=== PATIENT | female | born 1965 | race Caucasian/White ===

== ENCOUNTER 2025-01-21 02:21 | Day surgery (SDC) | payer OTHER ==
[2025-01-21] VITALS (221 sets, daily range): BP systolic 96–169; BP diastolic 31–108
[~2025-01-21 02:21] MED LIST: SODIUM CHLORIDE 0.9% 1,000 ML IV PRN
[2025-01-21] MEDS ORDERED: DEXMEDETOMIDINE HCL IN SODIUM 100 ML IV PRN (07:10)
[2025-01-21] MEDS ORDERED: SCOPOLAMINE 1.5 MG DIS TD PRN (07:30)
[2025-01-21] MEDS ORDERED: LACTATED RINGER'S 1,000 ML IV PRN ×2 (07:30→09:20)
[2025-01-21] MEDS ORDERED: CYANOCOBALAMIN 500 MCG/TAB ( B12) PO PRN (07:30)
[2025-01-21] MEDS ORDERED: cloNIDine HCL 0.1 MG/TAB PO PRN (07:30)
[2025-01-21] MEDS ORDERED: PANTOPRAZOLE SODIUM Sesquihydr 40 MG/TAB PO PRN (07:30)
[2025-01-21] MEDS ORDERED: ALBUTEROL SULFATE 2.5 MG VIAL IN PRN (07:30)
[2025-01-21] MEDS ORDERED: diazePAM 5 MG/TAB PO PRN ×2 (07:30→08:30)
[2025-01-21] MEDS ORDERED: FAMOTIDINE 20 MG/TAB PO PRN (07:30)
[2025-01-21] MEDS ORDERED: ASCORBIC ACID 4,000 MG in SODIUM CHLORIDE 0.9% 1,000 ML IV SCH (08:00)
[2025-01-21 08:41] LABS: EOS% 3.6 % (0-8); HEMATOCRIT 38.4 % (37.0-47.0); HEMOGLOBIN 12.3 g/dl (12.0-16.0); LYMPH% 37.3 % (15-41); MEAN CELL VOLUME 93.2 fL CALC (80.0-100.0); MEAN CORPUSCULAR HGB 29.9 pG CALC (26.0-32.0); NEUT# 2.07 thou/uL (2.00-7.15); NEUT% 50.1 % (42-76); RED BLOOD COUNT 4.12 mill/uL (4.20-5.60); RED CELL DISTRI WIDTH 12.3 % (11.5-15.5)
[2025-01-21] MEDS ORDERED: XANAX0.5 MG PO (08:51)
[2025-01-21] MEDS ORDERED: CITALOPRAM20 MG PO (08:52)
[2025-01-21 08:53] LABS: ALBUMIN 4.1 g/dL (3.2-5.0); BILIRUBIN, TOTAL 0.6 mg/dL (0.02-1.3); CREATININE 0.6 mg/dL (0.5-1.0); TOTAL PROTEIN 6.9 g/dL (6.3-8.2)
[2025-01-21] MEDS ORDERED: diazePAM 5 MG/TAB VT PRN (09:20)
[2025-01-21] MEDS ORDERED: POTASSIUM CHLORIDE 20 MEQ/100 ML BAG IV PRN (09:20)
[2025-01-21] MEDS ORDERED: LIDOCAINE HCL 1% (10MG/ML) 100 MG/10 ML MDV VT PRN ×2 (09:20)
[2025-01-21] MEDS ORDERED: PROPOFOL 10 MG/ML 100ML VIAL IV PRN (09:20)
[2025-01-21] MEDS ORDERED: PROPOFOL 100 ML IV PRN (09:20)
[2025-01-21] MEDS ORDERED: DiphenhydrAMINE HCL 50 MG/ML SDV IV PRN (09:20)
[2025-01-21] MEDS ORDERED: cloNIDine HCL 0.1 MG/TAB VT PRN (09:20)
[2025-01-21] MEDS ORDERED: THIAMINE HCL 100 MG/ML 2ML VIAL IV PRN (09:20)
[2025-01-21] MEDS ORDERED: MIDAZOLAM HCL 2 MG/2 ML VIAL IV PRN ×3 (09:20→17:00)
[2025-01-21] MEDS ORDERED: ROCURONIUM BROMIDE 10 MG/ML 5 ML VIAL IV PRN (09:20)
[2025-01-21] MEDS ORDERED: MAGNESIUM SULFATE HEPTAHYDRATE 100 ML IV PRN (09:20)
[2025-01-21] MEDS ORDERED: SODIUM CHLORIDE 0.9% 1,000 ML IV PRN ×2 (09:20→19:00)
[2025-01-21] MEDS ORDERED: SUCCINYLCHOLINE CHLORIDE 20 MG/ML 10ML VIAL IV PRN (09:20)
[2025-01-21] MEDS ORDERED: OCTREOTIDE ACETATE 100 MCG/VIAL SDV SC PRN (09:20)
[2025-01-21] MEDS ORDERED: cloNIDine HYDROCHLORIDE 100 MCG/ML 10 ML INJ IV PRN (09:20)
[2025-01-21] MEDS ORDERED: ONDANSETRON HCl 4 MG/2 ML SDV IV PRN ×3 (09:20→19:00)
[2025-01-21] MEDS ORDERED: LIDOCAINE HCL 1% (10MG/ML) 100 MG/10 ML MDV IV PRN ×2 (09:20→12:55)
[2025-01-21] MEDS ORDERED: STERILE WATER FOR IRRIGATION 1,000 ML BTL IR PRN (09:20)
[2025-01-21] MEDS ORDERED: NALTREXONE HCL 50 MG/TAB VT PRN (09:20)
[2025-01-21] MEDS ORDERED: KETOROLAC TROMETHAMINE 30 MG/ML SDV IV PRN ×2 (12:55→19:00)
[2025-01-21] MEDS ORDERED: ACETAMINOPHEN 100 ML IV PRN (12:55)
[2025-01-21] MEDS ORDERED: CLONIDINE0.1 MG PO (13:34)
[2025-01-21] MEDS ORDERED: KLONOPIN2 MG PO (13:34)
[2025-01-21] MEDS ORDERED: NALTREXONE50 MG PO (13:34)
[2025-01-21] MEDS ORDERED: hydrALAZINE HCL 20 MG/ML VIAL(1 ML) IV SCH (13:55)
[2025-01-21] MEDS ORDERED: METOPROLOL TARTRATE 5 MG/5 ML VIAL IV ONE (18:24)
[2025-01-21] MEDS ORDERED: METOPROLOL TARTRATE 5 MG/5 ML VIAL IV SCH (18:30)
[2025-01-21] MEDS ORDERED: PROMETHAZINE HCL 25 MG in SODIUM CHLORIDE 0.9% 50 ML IV PRN (19:00)
[2025-01-21] MEDS ORDERED: HALOPERIDOL LACTATE 5 MG/ML SDV IV PRN (19:00)
[2025-01-21] MEDS ORDERED: ACETAMINOPHEN 1,000 MG/100 ML VIAL IV PRN (19:00)
[2025-01-21] MEDS ORDERED: PROMETHAZINE HCL 12.5 MG in SODIUM CHLORIDE 0.9% 50 ML IV PRN (19:00)
[2025-01-21] MEDS ORDERED: ACETAMINOPHEN 500 MG TAB PO PRN (19:00)
[2025-01-21] MEDS ORDERED: PATIENT' OWN MED CONTROLLED 1 EA DOSE IV PRN (21:00)
[2025-01-21] MEDS ORDERED: clonazePAM 1 MG/TAB PO PRN (23:00)
[2025-01-21] MEDS ORDERED: cloNIDine HCL 0.1 MG/TAB PO SCH (23:00)
[2025-01-22 03:32] VITALS: BP 140/60
[2025-01-22] MEDS ORDERED: cloNIDine HCL 0.1 MG/TAB PO PRN ×2 (04:00→16:30)
[2025-01-22] MEDS ORDERED: clonazePAM 1 MG/TAB PO PRN ×4 (04:00→23:00)
[2025-01-22] MEDS ORDERED: NALTREXONE HCL 50 MG/TAB PO SCH (04:00)
[2025-01-22 06:01] LABS: CREATININE 0.7 mg/dL (0.5-1.0); MAGNESIUM 2.2 mg/dL (1.6-2.3); POTASSIUM 4.1 mmol/l (3.5-5.1); TOTAL PROTEIN 6.6 g/dL (6.3-8.2)
[2025-01-22 06:03] LABS: BASO% 0.2 % (0-3); HEMATOCRIT 36.8 % (37.0-47.0); HEMOGLOBIN 12.3 g/dl (12.0-16.0); IMMATURE GRANULOCYTES 0.2 % (0.0-5.0); LYMPH% 20.3 % (15-41); MEAN CELL VOLUME 92.2 fL CALC (80.0-100.0); MEAN CORPUSCULAR HGB 30.8 pG CALC (26.0-32.0); MEAN CORPUSCULAR HGB CONC 33.4 g/dL CAL (32.0-36.0); MONO% 2.5 % (2-13); NEUT# 3.33 thou/uL (2.00-7.15); NEUT% 76.8 % (42-76); RED BLOOD COUNT 3.99 mill/uL (4.20-5.60); RED CELL DISTRI WIDTH 12.2 % (11.5-15.5)
[2025-01-22 06:11] LABS: BILIRUBIN, TOTAL 1.2 mg/dL (0.02-1.3)
[2025-01-22] MEDS ORDERED: PANTOPRAZOLE SODIUM Sesquihydr 40 MG/TAB PO SCH (08:00)
[2025-01-22] MEDS ORDERED: ACETAMINOPHEN 325 MG/TAB PO SCH (08:00)
[2025-01-22] MEDS ORDERED: cloNIDine HCL 0.1 MG/TAB PO SCH ×2 (08:00→23:00)
[2025-01-22] MEDS ORDERED: Cholecalciferol 2,000 UNIT/TAB PO PRN (09:00)
[2025-01-22] MEDS ORDERED: MAGNESIUM OXIDE 400 MG/TAB PO PRN (09:00)
[2025-01-22] MEDS ORDERED: ACETAMINOPHEN 500 MG TAB PO PRN (09:00)
[2025-01-22] MEDS ORDERED: LACTATED RINGER'S 1,000 ML IV PRN (16:25)
[2025-01-22 19:21] VITALS: BP 133/59
[2025-01-22 22:22] VITALS: BP 119/38
[2025-01-23] MEDS ORDERED: NALTREXONE HCL 50 MG/TAB PO SCH (04:00)
[2025-01-23 05:49] LABS: BASO% 0.2 % (0-3); HEMATOCRIT 36.2 % (37.0-47.0); IMMATURE GRANULOCYTES 0.2 % (0.0-5.0); LYMPH% 13.8 % (15-41); MEAN CELL VOLUME 92.6 fL CALC (80.0-100.0); MEAN CORPUSCULAR HGB 30.7 pG CALC (26.0-32.0); MEAN CORPUSCULAR HGB CONC 33.1 g/dL CAL (32.0-36.0); MONO% 7.2 % (2-13); NEUT# 7.12 thou/uL (2.00-7.15); NEUT% 78.6 % (42-76); RED BLOOD COUNT 3.91 mill/uL (4.20-5.60); RED CELL DISTRI WIDTH 12.5 % (11.5-15.5)
[2025-01-23 05:57] LABS: BILIRUBIN, TOTAL 1.3 mg/dL (0.02-1.3); CREATININE 0.6 mg/dL (0.5-1.0); MAGNESIUM 2.1 mg/dL (1.6-2.3); POTASSIUM 3.3 mmol/l (3.5-5.1); TOTAL PROTEIN 6.6 g/dL (6.3-8.2)
[2025-01-23 08:40] VITALS: BP 168/73
[2025-01-23] MEDS ORDERED: POTASSIUM CHLORIDE 20 MEQ/TAB PO SCH ×3 (10:00→11:30)
[2025-01-23] MEDS ORDERED: PATIENT' OWN MED CONTROLLED 1 EA DOSE IV PRN (21:00)
== END 2025-01-23 11:51 | disposition home or self-care (01) | DRG 897 ==
LOC: ANR 02:21 → MS2 02:22 → ANR 07:00
PROVIDERS: ATTEND Anesthesiology
DX: F11.20 Opioid dependence, uncomplicated (principal)
CPT/HCPCS: J0131; J0360; J0735; J1100; J1200; J2354; J2405; J2550; J2704; J3475; J3480; J3490